=== PATIENT | female | born 1955 | race African-American/Black ===

== ENCOUNTER 2020-05-24 17:33 | Emergency (ER) | payer BC ==
[~2020-05-24] VITALS: Ht 160 cm; Wt 70.8 kg
--- NOTE | 2020-05-24 17:33 | NUR ---
PT BRENDARA FROM [facility] C/O R FLANK PAIN FOR 5 DAYS. PT IS AAOX4, NO IN RESPIRATORY DISTRESS, V/S STABLE, KEPT RESTED AND COMFORTABLE. WILL CONTINUE TO MONITOR.
--- NOTE | 2020-05-24 17:49 | NUR ---
AT BEDSIDE FOR EVAL.
[2020-05-24] MEDS ORDERED: KETOROLAC TROMETHAMINE INJ 30 MG/ML VIAL IV ONE (18:00)
[2020-05-24] MEDS ORDERED: IV NS 0.9% 1,000 ML BAG IV ONE (18:00)
--- NOTE | 2020-05-24 18:01 | NUR ---
URINE SPECIMEN COLLECTED AND SENT TO LAB.
[2020-05-24] MEDS ORDERED: KETOROLAC TROMETHAMINE 15 MG/ML VIAL ONE (18:10)
--- NOTE | 2020-05-24 18:10 | NUR ---
IV LINE ESTABLISHED BLOOD DRAWN AND SENT TO LAB.
[2020-05-24 18:33] LABS: BASOPHILS # (AUTO) 0.1 /CMM (0.0-0.2); BASOPHILS % (AUTO) 0.8 % (0.0-2.0); EOSINOPHILS % (AUTO) 2.6 % (0.0-6.0); HEMATOCRIT 37 % (33-45); HEMOGLOBIN 12.4 g/dL (11.5-14.8); LYMPHOCYTES # (AUTO) 4.4 /CMM (0.8-4.8); LYMPHOCYTES % (AUTO) 61.9 % (20.0-44.0); MEAN CORPUSCULAR HGB CONC 33 g/dl (31.0-36.0); MEAN CORPUSCULAR VOLUME 87 fL (82-100); MONOCYTES # (AUTO) 0.4 /CMM (0.1-1.30); NEUTROPHILS # (AUTO) 2.1 /CMM (1.8-8.9); NEUTROPHILS % (AUTO) 29.7 % (43.0-81.0); PLATELET COUNT (AUTO) 355 /CMM (150-450); RED BLOOD CELL COUNT(AUTO) 4.24 MIL/uL (4.0-5.2); WHITE BLOOD COUNT (AUTO) 7.1 K/uL (4.3-11.0)
[2020-05-24 18:48] LABS: BILIRUBIN,URINE Negative (NEGATIVE); COLOR,URINE YELLOW (YELLOW); LEUKOCYTE ESTERASE ,URINE Negative (NEGATIVE); NITRITE, URINE Negative (NEGATIVE); PROTEIN,URINE Negative (NEGATIVE); UGLUCOSE Negative (NEGATIVE); UROBILINOGEN,URINE 0.2 EU/dL (0.2)
[2020-05-24 18:54] LABS: CREATININE 0.8 mg/dL (0.6-1.3); POTASSIUM 4.3 mmol/L (3.5-5.1)
[2020-05-24 19:02] LABS: ALBUMIN 3.3 g/dL (3.4-5.0); BILIRUBIN,DIRECT 0.1 mg/dL (0.0-0.2); BILIRUBIN,TOTAL 0.2 mg/dL (0.2-1.0)
--- NOTE | 2020-05-24 19:32 | NUR ---
PT AMBULATORY TO RESTROOM WITH STEADY GAIT
--- NOTE | 2020-05-24 19:40 | NUR ---
Patient discharged to home in stable condition. Written and verbal after care instructions given. Patient verbalizes understanding of instruction.IV removed. Catheter intact and site benign. Pressure and 4x4 applied to site. No bleeding noted.Pt ambulatory with a steady gait
[2020-05-24 19:56] LABS: EOSINOPHILS % (MANUAL) 3 % (0-4); LYMPHOCYTES % (MANUAL) 56 % (16-48); MONOCYTES % (MANUAL) 4 % (0-11.0); NEUTROPHILS % (MANUAL) 37 (42-76)
[2020-05-24 20:13] VITALS: BP 115/75
--- NOTE | 2020-05-24 20:36 | NUR ---
LA HOUSING MILITARY TECHNOLOGY MANAGER ERIN ([phone])
--- NOTE | 2020-05-24 20:48 | NUR ---
[facility] RESERVATION #[id number]
== END 2020-05-24 20:13 | disposition home or self-care (01) ==
LOC: ER 17:36
DX: R10.30 Lower abdominal pain, unspecified (principal); I10 Essential (primary) hypertension; E11.9 Type 2 diabetes mellitus without complications; F41.9 Anxiety disorder, unspecified; Z59.0 Homelessness
CPT/HCPCS: 36415; 74176; 80048; 80076; 81003; 83690; 85007; 85025; 96361; 96374; 99284; J1885; J7030

== ENCOUNTER 2020-08-17 15:35 | Emergency (ER) | payer MEDICARE, OTHER ==
[~2020-08-17] VITALS: Ht 160 cm; Wt 65.8 kg
--- NOTE | 2020-08-17 15:35 | NUR ---
PT BIB SELF SENT BY PMD FOR CARDIAC WORK UP. PT IS AAOX4, NOT IN RESPIRATORY DISTRESS, V/S STABLE, KEPT RESTED AND COMFORTABLE. WILL CONTINUE TO MONITOR.
--- NOTE | 2020-08-17 16:00 | NUR ---
AT BEDSIDE FOR EVAL.
--- NOTE | 2020-08-17 16:10 | NUR ---
IV LINE ESTABLISHED BLOOD DRAWN AND SENT TO LAB.
[2020-08-17 16:44] LABS: BASOPHILS # (AUTO) 0.1 /CMM (0.0-0.2); HEMATOCRIT 39 % (33-45); LYMPHOCYTES # (AUTO) 4.8 /CMM (0.8-4.8); LYMPHOCYTES % (AUTO) 74.4 % (20.0-44.0); MEAN CORPUSCULAR HGB CONC 33 g/dl (31.0-36.0); MEAN CORPUSCULAR VOLUME 88 fL (82-100); MONOCYTES # (AUTO) 0.4 /CMM (0.1-1.30); MONOCYTES % (AUTO) 5.6 % (2.0-12.0); PLATELET COUNT (AUTO) 219 /CMM (150-450); RED BLOOD CELL COUNT(AUTO) 4.49 MIL/uL (4.0-5.2); WHITE BLOOD COUNT (AUTO) 6.4 K/uL (4.3-11.0)
[2020-08-17 16:52] LABS: CALCIUM, SERUM 8.6 mg/dL (8.5-10.1); CARBON DIOXIDE 30 mmol/L (21-32); CHLORIDE 104 mmol/L (98-107); CREATININE 0.8 mg/dL (0.6-1.3); GLUCOSE 118 mg/dL (74-106); POTASSIUM 3.1 mmol/L (3.5-5.1); SODIUM SERUM 142 mmol/L (136-145); UREA NITROGEN, BLOOD 12 mg/dL (7-18)
[2020-08-17] MEDS ORDERED: POTASSIUM CHLORIDE 20 MEQ TAB.PRT.SR PO ONE ×2 (17:30→17:36)
--- NOTE | 2020-08-17 18:51 | NUR ---
IV removed. Catheter intact and site benign. Pressure and 4x4 applied to site. No bleeding noted. Patient discharged to home in stable condition. Written and verbal after care instructions given. Patient verbalizes understanding of instruction.
[2020-08-17 18:52] VITALS: BP 121/82
[2020-08-17 19:14] LABS: BAND % (MANUAL) 1 % (0.0-5.0); EOSINOPHILS % (MANUAL) 3 % (0-4); LYMPHOCYTES % (MANUAL) 45 % (16-48); MONOCYTES % (MANUAL) 5 % (0-11.0); NEUTROPHILS % (MANUAL) 18 (42-76); REACTIVE LYMPHOCYTES 28 % (0-0)
== END 2020-08-17 18:52 | disposition home or self-care (01) ==
LOC: ER 15:35
DX: R94.31 Abnormal electrocardiogram [ECG] [EKG] (principal); I10 Essential (primary) hypertension; E11.9 Type 2 diabetes mellitus without complications; F41.9 Anxiety disorder, unspecified; J45.909 Unspecified asthma, uncomplicated; Z90.89 Acquired absence of other organs
CPT/HCPCS: 36415; 71045-TC; 80048-TC; 84484-TC; 85025-TC

== ENCOUNTER 2020-09-21 09:18 | Emergency (ER) | payer MEDICARE, OTHER ==
[~2020-09-21] VITALS: Ht 160 cm; Wt 66.7 kg
[2020-09-21 09:25] VITALS: BP 119/76
--- NOTE | 2020-09-21 09:32 | NUR ---
SEEN AND EXAMINED BY .
--- NOTE | 2020-09-21 09:41 | NUR ---
Patient discharged to home in stable condition. Written and verbal after care instructions given. Patient verbalizes understanding of instruction.
== END 2020-09-21 09:42 | disposition home or self-care (01) ==
LOC: ER 09:25
DX: M79.605 Pain in left leg (principal); M79.604 Pain in right leg; F17.200 Nicotine dependence, unspecified, uncomplicated; I10 Essential (primary) hypertension; E11.9 Type 2 diabetes mellitus without complications; F41.9 Anxiety disorder, unspecified

== ENCOUNTER 2020-10-15 15:40 | Emergency (ER) | payer MEDICARE, OTHER ==
[~2020-10-15] VITALS: Ht 160 cm; Wt 63.5 kg
[2020-10-15] MEDS ORDERED: DEXAMETHASONE SOD PHOSPHATE 10 MG/ML VIAL ONE (16:29)
[2020-10-15] MEDS ORDERED: KETOROLAC TROMETHAMINE 15 MG/ML VIAL ONE (16:29)
[2020-10-15] MEDS ORDERED: BACLOFEN (10 MG) 10 MG TABLET ONE (16:30)
[2020-10-15] MEDS ORDERED: BACLOFEN (10 MG) 10 MG TABLET PO ONE (16:30)
[2020-10-15] MEDS ORDERED: KETOROLAC TROMETHAMINE INJ 30 MG/ML VIAL IM ONE (16:30)
[2020-10-15] MEDS ORDERED: DEXAMETHASONE SOD PHOSPHATE 4 MG/ML VIAL IM ONE (16:30)
--- NOTE | 2020-10-15 16:50 | NUR ---
65 YEARS OLD FEMALE ALERT, ORIENTED X4 WALKING TO ER C/O RIGHT LATERAL THIGH PAIN X3 MONTHS MEDS GIVEN ORDERED WILL CONTINUE TO MONITOR TOLERATED WELL. X-RAY COMPLETED, US IN PROGRESS.
[2020-10-15 16:57] LABS: BILIRUBIN,URINE Negative (NEGATIVE); COLOR,URINE YELLOW (YELLOW); LEUKOCYTE ESTERASE ,URINE Negative (NEGATIVE); NITRITE, URINE Negative (NEGATIVE); PROTEIN,URINE Negative (NEGATIVE); UGLUCOSE Negative (NEGATIVE); UROBILINOGEN,URINE 0.2 EU/dL (0.2)
[2020-10-15] MEDS ORDERED: NAPR500T6 PO (17:43)
[2020-10-15] MEDS ORDERED: TRAM50TA2 PO (17:43)
[2020-10-15 18:07] VITALS: BP 130/70
--- NOTE | 2020-10-15 18:08 | NUR ---
patient condition stable pain improved ambulatory with steady care d/c home with instructions after care reviewed understood left er alert, oriented x4.
== END 2020-10-15 18:19 | disposition home or self-care (01) ==
LOC: ER 15:44
DX: G89.29 Other chronic pain (principal); M54.41 Lumbago with sciatica, right side; M48.00 Spinal stenosis, site unspecified; F17.210 Nicotine dependence, cigarettes, uncomplicated; I10 Essential (primary) hypertension; E11.9 Type 2 diabetes mellitus without complications; F41.9 Anxiety disorder, unspecified
CPT/HCPCS: 72110; 81003; 93971; 96372 ×2; 99285; 99406; J1100; J1885

== ENCOUNTER 2020-12-30 13:45 | Emergency (ER) | payer MEDICARE, OTHER ==
[~2020-12-30] VITALS: Ht 165.1 cm; Wt 70.8 kg
[~2020-12-30 13:45] MED LIST: NAPR500T6 PO; TRAM50TA2 PO
[2020-12-30] MEDS ORDERED: LIDOCAINE 1% INJ 50 ML MDV IJ ONE (15:37)
[2020-12-30] MEDS ORDERED: AZIT250T PO (16:26)
[2020-12-30 16:54] VITALS: BP 151/89
== END 2020-12-30 16:55 | disposition home or self-care (01) ==
LOC: ER 13:59
DX: S60.453A Superficial foreign body of left middle finger, initial encounter (principal); J40 Bronchitis, not specified as acute or chronic; F17.210 Nicotine dependence, cigarettes, uncomplicated; I10 Essential (primary) hypertension; E11.9 Type 2 diabetes mellitus without complications; F41.9 Anxiety disorder, unspecified; Z79.899 Other long term (current) drug therapy; W45.8XXA Other foreign body or object entering through skin, initial encounter; Y93.89 Activity, other specified; Y92.89 Other specified places as the place of occurrence of the external cause; Y99.8 Other external cause status
CPT/HCPCS: 10120; 71045; 73140; 99285; 99406; J3490

== ENCOUNTER 2021-03-23 14:17 | Emergency (ER) | payer MEDICARE, OTHER ==
[~2021-03-23] VITALS: Ht 162.6 cm; Wt 65.8 kg
[~2021-03-23 14:17] MED LIST changes: +AZIT250T PO
--- NOTE | 2021-03-23 14:20 | NUR ---
BIBRA 39 from home for possible OD to unknown substance. Pinpoint pupil upon arrival of RA39 at the scene, 2mg of narcan given and patient responds to pain. Blood glucose is 161MG/DL in the field. Hypotensive with a BP of 94/63, fluid challenge and was given 600ml of IV NS CLINIC RECEPTIONIST. BP is 108/74 upon arrival to the ER. Dr Herrera at for eval. Placed on lunchroom monitor. Will continuously monitor the patient.
[2021-03-23] MEDS ORDERED: NALOXONE PREFILLED SYRINGE 2 MG/2 ML SYRINGE ONE (14:24)
[2021-03-23] MEDS ORDERED: IV NS 0.9% 1,000 ML BAG IV ONE (14:30)
[2021-03-23] MEDS ORDERED: NALOXONE PREFILLED SYRINGE 2 MG/2 ML SYRINGE IV ONE (14:30)
[2021-03-23 15:02] LABS: BASOPHILS % (AUTO) 0.5 % (0.0-2.0); EOSINOPHILS % (AUTO) 2.9 % (0.0-6.0); HEMATOCRIT 37 % (33-45); HEMOGLOBIN 12.1 g/dL (11.5-14.8); LYMPHOCYTES # (AUTO) 4.4 K/uL (0.8-4.8); LYMPHOCYTES % (AUTO) 72.2 % (20.0-44.0); MEAN CORPUSCULAR HGB CONC 33 g/dl (31.0-36.0); MEAN CORPUSCULAR VOLUME 88 fL (82-100); MONOCYTES # (AUTO) 0.4 K/uL (0.1-1.30); NEUTROPHILS # (AUTO) 1.1 K/uL (1.8-8.9); NEUTROPHILS % (AUTO) 17.4 % (43.0-81.0); PLATELET COUNT (AUTO) 162 K/uL (150-450); RED BLOOD CELL COUNT(AUTO) 4.16 MIL/uL (4.0-5.2); WHITE BLOOD COUNT (AUTO) 6.1 K/uL (4.3-11.0)
[2021-03-23] MEDS ORDERED: DEXTROSE 50%-WATER 50 ML DISP.SYRIN ONE (15:09)
[2021-03-23 15:14] LABS: CARBON DIOXIDE 26 mmol/L (21-32); CHLORIDE 109 mmol/L (98-107); CREATININE 0.9 mg/dL (0.6-1.3); GLUCOSE 77 mg/dL (74-106); POTASSIUM 3.3 mmol/L (3.5-5.1); SODIUM SERUM 144 mmol/L (136-145); UREA NITROGEN, BLOOD 13 mg/dL (7-18)
[2021-03-23 15:21] LABS: ALANINE AMINOTRANSFERASE 90 U/L (12-78); ALBUMIN 3.3 g/dL (3.4-5.0); ALCOHOL, BLOOD < 3 mg/dL (0-0); ALKALINE PHOSPHATASE 84 U/L (46-116); ASPARTATE AMINOTRANSFERASE 67 U/L (15-37); BILIRUBIN,DIRECT 0.1 mg/dL (0.0-0.2); BILIRUBIN,TOTAL 0.4 mg/dL (0.2-1.0); TOTAL PROTEIN, SERUM 6.1 g/dL (6.4-8.2)
[2021-03-23 15:27] LABS: ACETAMINOPHEN < 10 ug/ml (10-30)
[2021-03-23] MEDS ORDERED: DEXTROSE 50%-WATER 50 ML DISP.SYRIN IV ONE (15:30)
[2021-03-23 15:58] LABS: BAND % (MANUAL) 1 % (0.0-5.0); EOSINOPHILS % (MANUAL) 6 % (0-4); LYMPHOCYTES % (MANUAL) 71 % (16-48); METAMYELOCYTES % 1 % (0-0); MONOCYTES % (MANUAL) 1 % (0-11.0); NEUTROPHILS % (MANUAL) 14 (42-76)
--- NOTE | 2021-03-23 16:20 | NUR ---
PT SLEEPING, UNAROUSABLE. ATTEMPTED STERNAL RUB AND PT FLINCHED
--- NOTE | 2021-03-23 17:08 | NUR ---
PT SLEEPING IN BED WITH BLANKET
--- NOTE | 2021-03-23 17:46 | NUR ---
URINE SAMPLE OBTAINED AND SENT TO LAB
[2021-03-23 18:11] LABS: BILIRUBIN,URINE Negative (NEGATIVE); COLOR,URINE YELLOW (YELLOW); LEUKOCYTE ESTERASE ,URINE Negative (NEGATIVE); NITRITE, URINE Negative (NEGATIVE); PH,URINE 6.5 (5.0-8.0); PROTEIN,URINE Negative (NEGATIVE); UGLUCOSE Negative (NEGATIVE); UROBILINOGEN,URINE 0.2 EU/dL (0.2)
--- NOTE | 2021-03-23 18:52 | NUR ---
PT SLEEPING IN BED, UNAROUSABLE. CLINCHES TO STERNAL RUB.
--- NOTE | 2021-03-24 02:37 | NUR ---
PT AROUSES TO VERBAL STIMULUS BREATHING EVEN AND UNALBORED 99% RA. ALL V/S AT THIS TIME. WILL CONTINUE TO MONITOR.
[2021-03-24 05:43] LABS: ALBUMIN 3.8 g/dL (3.4-5.0); BILIRUBIN,DIRECT 0.1 mg/dL (0.0-0.2); BILIRUBIN,TOTAL 0.4 mg/dL (0.2-1.0)
--- NOTE | 2021-03-24 06:44 | NUR ---
Patient discharged to home in stable condition. Written and verbal after care instructions given. Patient verbalizes understanding of instruction.
[2021-03-24 06:47] VITALS: BP 106/84
== END 2021-03-24 06:47 | disposition home or self-care (01) ==
LOC: ER 14:23
DX: T40.2X1A Poisoning by other opioids, accidental (unintentional), initial encounter (principal); F19.10 Other psychoactive substance abuse, uncomplicated; I10 Essential (primary) hypertension; E11.9 Type 2 diabetes mellitus without complications; F41.9 Anxiety disorder, unspecified; F17.200 Nicotine dependence, unspecified, uncomplicated; Y92.89 Other specified places as the place of occurrence of the external cause
CPT/HCPCS: 36415 ×2; 80048; 80076 ×2; 80143 ×2; 80179; 80307; 80320; 81003; 82962 ×4; 85007; 85025; 93005; 96365; 96375; 99285; J2310; J7030; G0480

== ENCOUNTER 2022-02-09 16:38 | Inpatient (IN) | payer MEDICARE, OTHER ==
[~2022-02-09] VITALS: Ht 160 cm; Wt 61.7 kg
--- NOTE | 2022-02-09 17:58 | NUR ---
MOVE SHEET SUBMITTED.
[2022-02-09] MEDS ORDERED: MORPHINE SULFATE INJ 2 MG/ML DISP.SYRIN IV ONE (19:30)
[2022-02-09] MEDS ORDERED: MORPHINE SULFATE INJ 2 MG/ML DISP.SYRIN ONE (19:34)
--- NOTE | 2022-02-09 19:40 | NUR ---
ASSUMED CARE OF PT. pPT [id number] from clinic, c/o chest sharp pressure like pain x 2 days L arm numb. PT ALSO ENDORSES HAVING HX OF "BLOOD CLOT IN THE BRAIN MAY 2021". PT AAOX4 BREATHING EVENLY AND UNLABORED. PT ATTACHED TO REEL STRIPPER AND POX. PT CHANGED INTO GOWN AND GIVEN BLANKET. WILL CONTINUE TO MONITOR.
--- NOTE | 2022-02-09 19:51 | NUR ---
covid swab sent to lab.
[2022-02-09 20:08] LABS: CALCIUM, SERUM 8.8 mg/dL (8.5-10.1); CARBON DIOXIDE 26 mmol/L (21-32); CHLORIDE 107 mmol/L (98-107); CREATININE 1.5 mg/dL (0.6-1.3); GLUCOSE 81 mg/dL (74-106); POTASSIUM 3.7 mmol/L (3.5-5.1); SODIUM SERUM 140 mmol/L (136-145); UREA NITROGEN, BLOOD 14 mg/dL (7-18)
[2022-02-09 20:23] LABS: BASOPHILS % (AUTO) 0.5 % (0.0-2.0); HEMATOCRIT 38 % (33-45); HEMOGLOBIN 12.6 g/dL (11.5-14.8); LYMPHOCYTES # (AUTO) 4.3 K/uL (0.8-4.8); LYMPHOCYTES % (AUTO) 66.7 % (20.0-44.0); MEAN CORPUSCULAR HGB CONC 33 g/dl (31.0-36.0); MEAN CORPUSCULAR VOLUME 86 fL (82-100); MONOCYTES # (AUTO) 0.4 K/uL (0.1-1.30); MONOCYTES % (AUTO) 5.6 % (2.0-12.0); NEUTROPHILS # (AUTO) 1.2 K/uL (1.8-8.9); NEUTROPHILS % (AUTO) 19.2 % (43.0-81.0); PLATELET COUNT (AUTO) 172 K/uL (150-450); RED BLOOD CELL COUNT(AUTO) 4.41 MIL/uL (4.0-5.2); WHITE BLOOD COUNT (AUTO) 6.4 K/uL (4.3-11.0)
[2022-02-09] MEDS ORDERED: Z GUARD REMEDY 4 OZ OINT TP PRN (21:30)
[2022-02-09] MEDS ORDERED: MAG HYDROX/AL HYDROX/SIMETH 30 ML UDC PO PRN (21:30)
[2022-02-09] MEDS ORDERED: ACETAMINOPHEN 325 MG TABLET PO PRN (21:30)
[2022-02-09] MEDS ORDERED: MAGNESIUM HYDROXIDE 30 ML UDC PO PRN (21:30)
[2022-02-09] MEDS ORDERED: ZOLPIDEM TARTRATE 5 MG TABLET PO PRN (21:30)
[2022-02-09] MEDS ORDERED: ONDANSETRON HCL/PF 4 MG/2 ML VIAL IVP PRN (21:30)
[2022-02-09] MEDS ORDERED: MORPHINE SULFATE INJ 2 MG/ML DISP.SYRIN IV PRN (22:00)
--- NOTE | 2022-02-09 22:11 | NUR ---
ATTEMPTED TO GIVE REPORT, KEPT ON HOLD
--- NOTE | 2022-02-09 22:19 | NUR ---
GAVE REPORT TO ANNY العراقي FOR LUCITA
[2022-02-09 22:51] VITALS: BP 134/71
--- NOTE | 2022-02-09 23:00 | NUR ---
TELE ADMISSION NOTE RECEIVED REPORT FROM NURSE OWUSU. PATIENT BEING ADMITTED IN ROOM 307-2 WITH DIAGNOSIS OF ACUTE CHEST PAIN WITH HIGH RISK OF ACUTE CORONARY SYNDROME. PT A/O X 4, ABLE TO MAKE NEEDS KNOWN. ABLE TO AMBULATE TO BATHROOM WITH ASSIST. PT IS VERY DROWSY, BUT RESPONSIVE. SHE IS ABLE TO ANSWER FEW QUESTIONS. HAS IV TO RIGHT WRIST 20G WITH NS RUNNING AT 90 ML/HR. BELONGING LIST CHECKED. PT BROUGHT HOME MEDS. SAFETY MEASURES IN PLACE: BED LOCKED IN LOW POSITION, SIDE RAILS UP X2, CALL LIGHT WITHIN REACH. WILL CONTINUE TO MONITOR PT.
[2022-02-09 23:31] LABS: ALANINE AMINOTRANSFERASE 63 U/L (12-78); ALBUMIN 3.7 g/dL (3.4-5.0); ALKALINE PHOSPHATASE 117 U/L (46-116); ASPARTATE AMINOTRANSFERASE 40 U/L (15-37); BILIRUBIN,DIRECT 0.1 mg/dL (0.0-0.2); BILIRUBIN,TOTAL 0.3 mg/dL (0.2-1.0); TOTAL PROTEIN, SERUM 6.8 g/dL (6.4-8.2)
[2022-02-10] MEDS ORDERED: IV NS 0.9% 1,000 ML IV PRN
[2022-02-10 04:00] VITALS: BP 116/70
[2022-02-10 07:10] LABS: BASOPHILS % (AUTO) 0.4 % (0.0-2.0); EOSINOPHILS % (AUTO) 9.6 % (0.0-6.0); HEMATOCRIT 42 % (33-45); HEMOGLOBIN 13.8 g/dL (11.5-14.8); LYMPHOCYTES # (AUTO) 3.4 K/uL (0.8-4.8); LYMPHOCYTES % (AUTO) 64.8 % (20.0-44.0); MEAN CORPUSCULAR HGB CONC 33 g/dl (31.0-36.0); MEAN CORPUSCULAR VOLUME 86 fL (82-100); MONOCYTES # (AUTO) 0.3 K/uL (0.1-1.30); MONOCYTES % (AUTO) 6.2 % (2.0-12.0); PLATELET COUNT (AUTO) 178 K/uL (150-450); RED BLOOD CELL COUNT(AUTO) 4.88 MIL/uL (4.0-5.2); WHITE BLOOD COUNT (AUTO) 5.2 K/uL (4.3-11.0)
--- NOTE | 2022-02-10 07:31 | NUR ---
TRAINING AND DOCUMENTATION SPECIALIST CLOSING NOTE LEFT PT SLEEPING IN BED. PT A/O X4, NO C/O PAIN AT THIS TIME. NO S/S OF ACUTE DISTRESS NOTED. PT ON TELE MONITOR READING SR. IV TO RIGHT AC RUNNING NS AT 90 ML/HR. IV SITE INTACT, AND PATENT. ALL MEDS ADMINISTERED TO PT ORDERED. SAFETY PRECAUTIONS IN PLACE: CALL LIGHT WITHIN REACH, BED IN LOW POSITION, SR UP X2. ENDORSED PT TO AM SHIFT NURSE.
--- NOTE | 2022-02-10 07:35 | NUR ---
ms rn received on bed, awake,alert,oriented x4,patient complaining of pain 10/08, will give meds later, respirations even and unlabored,no sob noted, lungs are clear,abdomen soft,positive bowel sounds,will monitor patient.
[2022-02-10 07:47] LABS: CREATININE 0.8 mg/dL (0.6-1.3); PHOSPHORUS 3.5 mg/dL (2.5-4.9); POTASSIUM 3.9 mmol/L (3.5-5.1)
[2022-02-10 08:00] VITALS: BP 133/72
--- NOTE | 2022-02-10 08:44 | NUR ---
ms rn breakfast served,due meds given, was seen by dr. cohen ,waiting for orders.
[2022-02-10] MEDS: ASPIRIN 81 MG TAB.CHEW PO SCH (09:01)
--- NOTE | 2022-02-10 10:00 | NUR ---
ms rn patient is for ct angio of [facility] today, waiting for the fuel verification technician.
[2022-02-10 12:00] VITALS: BP 112/65
[2022-02-10 13:12] LABS: BASOPHILS % (MANUAL) 0 % (0.0-2.0); EOSINOPHILS % (MANUAL) 8 % (0-4); LYMPHOCYTES % (MANUAL) 59 % (16-48); MONOCYTES % (MANUAL) 8 % (0-11.0); NEUTROPHILS % (MANUAL) 25 (42-76)
--- NOTE | 2022-02-10 13:50 | NUR ---
ms rn called u/s for the procedure,they already gone for the day, charge nurse is aware.
--- NOTE | 2022-02-10 15:00 | NUR ---
ms rn will do ct angio tomorrow per cn.
[2022-02-10] MEDS: TRAMADOL HCL 50 MG TABLET PO PRN ×2 (15:36→21:39)
--- NOTE | 2022-02-10 15:55 | NUR ---
ms rn went down for ct neck,all needs attended.
[2022-02-10 16:00] VITALS: BP 136/77
[2022-02-10] MEDS ORDERED: GABA600T12 PO (16:51)
[2022-02-10] MEDS ORDERED: MAGN400T52 PO (16:51)
[2022-02-10] MEDS ORDERED: ASPI-1420 PO (16:51)
[2022-02-10] MEDS ORDERED: CLOP75TA15 PO (16:51)
[2022-02-10] MEDS ORDERED: POTA20TA83 PO (16:51)
[2022-02-10] MEDS ORDERED: CHOL100062 PO (16:51)
[2022-02-10] MEDS ORDERED: ATOR40TA PO (16:51)
[2022-02-10] MEDS ORDERED: AMLO-213 PO (16:51)
[2022-02-10] MEDS: GABAPENTIN 300 MG CAPSULE PO SCH (17:22)
--- NOTE | 2022-02-10 18:17 | NUR ---
ms rn texted eliu mendez for med recon.
--- NOTE | 2022-02-10 19:35 | NUR ---
WETLAND SCIENTIST OPENING NOTE RECEIVED PT AWAKE, SITTING IN BED. PT A/O X4, NO C/O PAIN AT THIS TIME. NO S/S OF ACUTE DISTRESS NOTED. PT ON TELE MONITOR READING SR. SAFETY PRECAUTIONS IN PLACE: CALL LIGHT WITHIN REACH, BED IN LOW POSITION, SR UP X2. WILL CONTINUE TO MONITOR PT.
[2022-02-10 20:01] VITALS: BP 134/65
[2022-02-10 23:50] VITALS: BP 126/75
[2022-02-11 04:30] VITALS: BP 136/68
[2022-02-11] MEDS: TRAMADOL HCL 50 MG TABLET PO PRN ×2 (05:28→18:59)
[2022-02-11 06:31] VITALS: BP 195/95
--- NOTE | 2022-02-11 07:10 | NUR ---
ms rn received on bed, awake,alert,oriented x4,not in any form of distress, respirations even and unlabored,no sob noted, denies pain at this time, will monitor patient.
--- NOTE | 2022-02-11 07:15 | NUR ---
LANDSCAPE ACCOUNT MANAGER CLOSING NOTE LEFT PT IN BED, AWAKE. PT A/O X4, NO C/O PAIN AT THIS TIME. NO S/S OF ACUTE DISTRESS NOTED. PT NPO DUE TO CT ANGIO SCHEDULED FOR THIS AM. ALL MEDS ADMINISTERED TO PT ORDERED. SAFETY PRECAUTIONS IN PLACE: CALL LIGHT WITHIN REACH, BED IN LOW POSITION, SR UP X2. WILL ENDORSE PT TO AM SHIFT NURSE.
[2022-02-11 08:19] VITALS: BP 122/76
[2022-02-11] MEDS: ASPIRIN 81 MG TAB.CHEW PO SCH (08:21)
[2022-02-11] MEDS: GABAPENTIN 300 MG CAPSULE PO SCH ×3 (08:21→17:49)
--- NOTE | 2022-02-11 09:00 | NUR ---
ms lizarraga breakfast served,due meds given,tolerated well.
--- NOTE | 2022-02-11 11:30 | NUR ---
ms rn was seen by eliu mendez, was reminded to reconcile meds again, will waiting for her to reconcile,all needs attended.
[2022-02-11 12:42] VITALS: BP 125/74
[2022-02-11] MEDS ORDERED: IOHEXOL-350 100 ML VIAL IV ONE (13:20)
[2022-02-11] MEDS ORDERED: CT SWABBABLE VALVE TRANS SET 1 EA INFUS.SET MC ONE (13:20)
[2022-02-11] MEDS ORDERED: IV NS 0.9% 250 ML IV ONE (13:20)
[2022-02-11] MEDS ORDERED: METOPROLOL TARTRATE INJ 5 MG/5 ML AMPUL ONE (13:42)
[2022-02-11] MEDS ORDERED: NITROGLYCERIN 0.4 MG/TAB BOTTLE ONE (13:42)
[2022-02-11] MEDS ORDERED: NITROGLYCERIN 0.4 MG/TAB BOTTLE SL ONE (14:00)
[2022-02-11] MEDS ORDERED: IV NS 0.9% 500 ML IV PRN (14:00)
[2022-02-11] MEDS: METOPROLOL TARTRATE INJ 5 MG/5 ML AMPUL IVP PRN ×2 (14:04→14:05)
--- NOTE | 2022-02-11 14:07 | NUR ---
RN NOTE Patient tolerated procedure well. Report given to ANNY Álvarez.
--- NOTE | 2022-02-11 14:30 | NUR ---
ms rn came back from ct angio, tolerated well.
[2022-02-11 15:50] VITALS: BP 113/63
--- NOTE | 2022-02-11 17:19 | NUR ---
ms rn on bed, stable, still waiting for dr. whitten for psych eval.
--- NOTE | 2022-02-11 17:20 | NUR ---
ms rn texted eliu for med recon.
--- NOTE | 2022-02-11 19:30 | NUR ---
RN OPENING NOTE PATIENT AWAKE IN BED. A/OX4. NO S/S OF DISTRESS, BREATHING WITHOUT DIFFICULTY ON ROOM AIR. R-WRIST SL INTACT AND PATENT. TELE READS SB 59. SAFETY MEASURES IN PLACE: BED LOCKED IN PLACE AND AT LOWEST POSITION, RAILS UP X2, CALL BURROUGHS WITHIN REACH. WILL CONTINUE O MONITOR PATIENT.
[2022-02-11 20:00] VITALS: BP 108/61
[2022-02-11] MEDS: MAGNESIUM OXIDE 400 MG TABLET PO SCH (22:17)
[2022-02-11] MEDS: ATORVASTATIN 40 MG TABLET PO SCH (22:17)
[2022-02-12] VITALS: BP 110/56
[2022-02-12 04:00] VITALS: BP 100/58
--- NOTE | 2022-02-12 06:52 | NUR ---
RN CLOSING NOTE PATIENT ASLEEP IN BED. A/OX4. NO S/S OF DISTRESS, BREATHING WITHOUT DIFFICULTY ON ROOM AIR. R-WRIST #20 SL INTACT AND PATENT. TELE READS SR 62 W/ ST DEPRESSIONS. SAFETY MEASURES IN PLACE: BED LOCKED AND AT LOWEST POSITION, RAILS UP X2, CALL BURROUGHS WITHIN REACH. WILL ENDORSE TO NEXT SHIFT FOR LUCITA.
--- NOTE | 2022-02-12 07:10 | NUR ---
ms rn received on bed,awake,alert,oriented x4,not in any form of distress, respirations even and unlabored,no sob noted, lungs are clear,abdomen soft,positive bowel sounds,denies pain at this time, will monitor patient.
[2022-02-12 08:00] VITALS: BP 133/58
--- NOTE | 2022-02-12 08:30 | NUR ---
ms rn breakfast served,due meds given, tolerated well. was seen by psychiatric orderly for eval
[2022-02-12] MEDS: AMLODIPINE BESYLATE 10 MG TABLET PO SCH (09:00)
[2022-02-12] MEDS: POTASSIUM CHLORIDE 20 MEQ TAB.PRT.SR PO SCH (09:16)
[2022-02-12] MEDS: GABAPENTIN 300 MG CAPSULE PO SCH ×3 (09:16→17:07)
[2022-02-12] MEDS: ASPIRIN 81 MG TAB.CHEW PO SCH (09:17)
[2022-02-12] MEDS: CLOPIDOGREL BISULFATE 75 MG TABLET PO SCH (09:17)
[2022-02-12] MEDS: CHOLECALCIFEROL 1,000 UNIT TABLET (VIT D3) PO SCH (09:17)
[2022-02-12] MEDS: TRAMADOL HCL 50 MG TABLET PO PRN ×2 (09:24→17:07)
--- NOTE | 2022-02-12 11:00 | NUR ---
ms rn patient on bed, no distress noted.
--- NOTE | 2022-02-12 15:00 | NUR ---
ms rn patient is acting up, security called.
[2022-02-12 16:00] VITALS: BP 126/55
--- NOTE | 2022-02-12 16:42 | NUR ---
ms rn sleeping on bed, all needs attended.
[2022-02-12 20:00] VITALS: BP 116/74
--- NOTE | 2022-02-12 20:02 | NUR ---
RN OPENING NOTE PATIENT ASLEEP IN BED. A/OX4. NO S/S OF DISTRESS, BREATHING WITHOUT DIFFICULTY ON ROOM AIR. R-WRIST #20 SL INTACT AND PATENT. TELE READS SR 66. SAFETY MEASURES IN PLACE: BED LOCKED AND AT LOWEST POSITION, RAILS UP X2, CALL BURROUGHS WITHIN REACH. WILL CONTINUE TO MONITOR PATIENT.
[2022-02-12] MEDS: ATORVASTATIN 40 MG TABLET PO SCH (21:27)
[2022-02-12] MEDS: MAGNESIUM OXIDE 400 MG TABLET PO SCH (21:27)
[2022-02-12] MEDS: OLANZAPINE 2.5 MG TABLET PO SCH (21:27)
[2022-02-13] VITALS: BP 109/58
[2022-02-13 04:00] VITALS: BP 110/68
--- NOTE | 2022-02-13 06:37 | NUR ---
RN CLOSING NOTE PATIENT ASLEEP IN BED. A/OX4. NO S/S OF DISTRESS, BREATHING WITHOUT DIFFICULTY ON ROOM AIR. R-WRIST #20 SL INTACT AND PATENT. TELE READS SR 60. SAFETY MEASURES IN PLACE: BED LOCKED IN PLACE, AT LOWEST POSITION, RAILS UP X2, CALL BURROUHGS WITHIN REACH. WILL ENDORSE TO NEXT SHIFT FOR LUCITA.
[2022-02-13] MEDS: TRAMADOL HCL 50 MG TABLET PO PRN ×2 (07:45→13:48)
--- NOTE | 2022-02-13 07:54 | NUR ---
AGRI BUSINESS AGENT OPENING NOTE Patient in bed, awake. A/O x 4, able to make needs known. On room air, breathing evenly and unlabored. No SOB or s/s of distress noted. IV access on Right wrist #20 SL, intact and patent. On tele monitoring showing SR, HR 82. Patient complained of pain on Left arm, 7/10 on pain scale. PRN Tramadol given. Safety precautions in place: bed in low, locked position, siderails up x 2, call light within reach. Will continue to monitor.
[2022-02-13 08:00] VITALS: BP 111/79
[2022-02-13] MEDS: CHOLECALCIFEROL 1,000 UNIT TABLET (VIT D3) PO SCH (08:31)
[2022-02-13] MEDS: AMLODIPINE BESYLATE 10 MG TABLET PO SCH (08:31)
[2022-02-13] MEDS: GABAPENTIN 300 MG CAPSULE PO SCH ×3 (08:31→16:58)
[2022-02-13] MEDS: POTASSIUM CHLORIDE 20 MEQ TAB.PRT.SR PO SCH (08:31)
[2022-02-13] MEDS: ASPIRIN 81 MG TAB.CHEW PO SCH (09:22)
[2022-02-13] MEDS: CLOPIDOGREL BISULFATE 75 MG TABLET PO SCH (09:22)
[2022-02-13 12:00] VITALS: BP 113/68
--- NOTE | 2022-02-13 13:48 | NUR ---
RN NOTE Patient complained of pain on Left shoulder, 7/10 on pain scale. PRN Tramadol given. Will continue to monitor.
[2022-02-13 16:00] VITALS: BP 133/77
--- NOTE | 2022-02-13 19:30 | NUR ---
CARTON FORMING MACHINE HELPER OPENING NOTE RECEIVED PT AWAKE IN BED. A/O X 4 AND ABLE TO MAKE NEEDS KNOWN. PT STABLE ON ROOM AIR. NO SOB OR S/S OF RESPIRATORY DISTRESS. BREATHING EVEN AND UNLABORED. ON EXTERNAL TUNNELLER READING SR 82 BPM. IV ACCESS R WRIST 20G, INTACT AND PATENT. SAFETY PRECAUTIONS IN PLACE. BED IN LOWEST LOCKED POSITION, HOB ELEVATED, SIDE RAILS UP X2, AND CALL LIGHT AND TABLE WITHIN REACH. ALL NEEDS MET AT THIS TIME.
--- NOTE | 2022-02-13 19:32 | NUR ---
DIVISION CHIEF CLOSING NOTE Patient in bed, resting. A/O x 4, able to make needs known. Stable on room air, breathing evenly and unlabored. No SOB or s/s of distress noted. IV access on Right wrist #20 SL, intact and patent. On tele monitoring showing SR. Patient to be kept NPO post midnight for cardiac cath in am. All needs attended to. Due meds given. Safety precautions in place: bed in low, locked position, siderails up x 2, call light within reach. Will endorse to cnc machinist 2nd shift nurse for LUCITA.
[2022-02-13 20:00] VITALS: BP 101/55
[2022-02-13] MEDS: MAGNESIUM OXIDE 400 MG TABLET PO SCH (22:03)
[2022-02-13] MEDS: OLANZAPINE 2.5 MG TABLET PO SCH (22:03)
[2022-02-13] MEDS: ATORVASTATIN 40 MG TABLET PO SCH (22:03)
[2022-02-14] VITALS (11 sets, daily range): BP systolic 102–138; BP diastolic 43–79
--- NOTE | 2022-02-14 07:12 | NUR ---
TELEGRAPH EDITOR CLOSING NOTE PT AWAKE IN BED. A/O X 4 AND ABLE TO MAKE NEEDS KNOWN. PT STABLE ON ROOM AIR. NO SOB OR S/S OF RESPIRATORY DISTRESS. BREATHING EVEN AND UNLABORED. ON EXTERNAL BIOPHARMACEUTICAL REP READING SR. IV ACCESS R WRIST 20G AND LFA 20G, INTACT AND PATENT. ALL DUE MEDS GIVEN ORDERED. SAFETY PRECAUTIONS IN PLACE AT ALL TIMES. BED IN LOWEST LOCKED POSITION, HOB ELEVATED, SIDE RAILS UP X2, AND CALL LIGHT AND TABLE WITHIN REACH. ALL NEEDS MET AT THIS TIME AND WILL ENDORSE TO ONCOMING NURSE FOR LUCITA.
--- NOTE | 2022-02-14 07:15 | NUR ---
GRAPE CUTTER OPENING NOTES: RECEIVED PT AWAKE, ALERT AND ORIENTED X 4 AND ABLE TO VERBALIZED NEEDS. NO SOB OR CARDIAC DISTRESS NOTED, AFEBRILE. MAINTAINED ON NPO. NOTED WITH IV ACCESS ON LFA GAUGE 20 AND R WRIST [id number], INTACT AND FLUSHING WELL. ON STAFFING CLERK: WITH CURRENT READING OF SINUS RHYTHM 712 BPM. SAFETY PRECAUTIONS MAINTAINED: BED LOCKED AND IN LOWEST POSITION, SIDE RAILS UP X 2 CALL LIGHT AND BED SIDE TABLE IN EASY REACH FOR HELP. WILL MONITOR PT ACCORDINGLY.
[2022-02-14 07:26] LABS: BASOPHILS % (AUTO) 0.6 % (0.0-2.0); EOSINOPHILS % (AUTO) 5.4 % (0.0-6.0); HEMATOCRIT 39 % (33-45); HEMOGLOBIN 12.5 g/dL (11.5-14.8); LYMPHOCYTES # (AUTO) 2.3 K/uL (0.8-4.8); LYMPHOCYTES % (AUTO) 60.5 % (20.0-44.0); MEAN CORPUSCULAR HGB CONC 32 g/dl (31.0-36.0); MEAN CORPUSCULAR VOLUME 87 fL (82-100); MONOCYTES # (AUTO) 0.3 K/uL (0.1-1.30); MONOCYTES % (AUTO) 6.6 % (2.0-12.0); NEUTROPHILS % (AUTO) 26.9 % (43.0-81.0); PLATELET COUNT (AUTO) 140 K/uL (150-450); RED BLOOD CELL COUNT(AUTO) 4.46 MIL/uL (4.0-5.2); WHITE BLOOD COUNT (AUTO) 3.9 K/uL (4.3-11.0)
[2022-02-14] MEDS: CLOPIDOGREL BISULFATE 75 MG TABLET PO SCH (09:00)
[2022-02-14] MEDS: ASPIRIN 81 MG TAB.CHEW PO SCH (09:00)
[2022-02-14] MEDS: CHOLECALCIFEROL 1,000 UNIT TABLET (VIT D3) PO SCH (09:00)
[2022-02-14] MEDS: AMLODIPINE BESYLATE 10 MG TABLET PO SCH (09:00)
[2022-02-14] MEDS: POTASSIUM CHLORIDE 20 MEQ TAB.PRT.SR PO SCH (09:00)
[2022-02-14] MEDS: GABAPENTIN 300 MG CAPSULE PO SCH ×3 (09:00→18:18)
--- NOTE | 2022-02-14 10:00 | NUR ---
RN NOTES: PATIENT REQUESTED TO REMOVE IV ACCESS ON HER R WRIST, REMOVED IV ACCESS AND TOLERATED WELL.
[2022-02-14 10:18] LABS: ALBUMIN 3.4 g/dL (3.4-5.0); BILIRUBIN,TOTAL 0.3 mg/dL (0.2-1.0); CALCIUM, SERUM 8.8 mg/dL (8.5-10.1); CREATININE 0.8 mg/dL (0.6-1.3); MAGNESIUM 2.3 mg/dL (1.8-2.4); PHOSPHORUS 3.6 mg/dL (2.5-4.9); POTASSIUM 3.9 mmol/L (3.5-5.1); TOTAL PROTEIN, SERUM 7.2 g/dL (6.4-8.2)
[2022-02-14] MEDS: TRAMADOL HCL 50 MG TABLET PO PRN ×3 (11:14→22:25)
[2022-02-14] MEDS ORDERED: IV NS 0.9% 1,000 ML ONE (13:42)
[2022-02-14] MEDS ORDERED: IODIXANOL 150 ML IV ONE (13:42)
[2022-02-14] MEDS ORDERED: IV SET PRIMARY PUMP SET 1 EA INFUS.SET MC ONE (13:42)
[2022-02-14] MEDS ORDERED: LIDOCAINE HCL/MPF 1% 30 ML VIAL IJ ONE (13:42)
[2022-02-14] MEDS ORDERED: NITROGLYCERIN IN 5 % DEXTROSE 250 ML IV ONE (13:43)
--- NOTE | 2022-02-14 13:53 | NUR ---
RN NOTES: PATIENT PICKED UP BY RN AND TRANSPORTER GOING TO [facility]. PATIENT ALERT AND AWAKE. VS WNL, NO SOB OR CARDIAC DISTRESS NOTED. TRANSFERRED VIA BED.
[2022-02-14] MEDS ORDERED: FENTANYL PF 100MCG/2ML AMPUL ONE (14:04)
[2022-02-14] MEDS ORDERED: MIDAZOLAM HCL 2 MG/2ML VIAL ONE (14:05)
--- NOTE | 2022-02-14 15:30 | NUR ---
CHEMICAL EQUIPMENT SALES ENGINEER RECEIVED PT BY PADMINI WITH MONITOR FROM OUTSOLE CASER. PT AWAKE AND ALERT. DENIES PAIN. FLAT ON BED. PT INSTRUCTED TO KEEP RIGHT LEG STRAIGHT FOR THE NEXT 2 HOURS AND TO STAY IN BED. RIGHT FEMORAL SITE CLEAN AND DRY WITH INTACT DRESSSING. RIGHT PEDAL PULSES PALPABLE, FOOT WARM AND DRY.
--- NOTE | 2022-02-14 17:50 | NUR ---
RN NOTES: PT FROM ICU. PT STABLE A/O X 4 AND ABLE TO VERBALIZED NEEDS. NO SOB OR CARDIAC DISTRESS. PT DENIES ANY PAIN AT THIS TIME. WILL MONITOR PT ACCORDINGLY.
--- NOTE | 2022-02-14 19:00 | NUR ---
TECHNICAL PROGRAMS MANAGER CLOSING NOTES: PT AWAKE, ALERT AND ORIENTED X 4 AND ABLE TO VERBALIZED NEEDS. NO SOB OR CARDIAC DISTRESS NOTED, AFEBRILE. NOTED WITH IV ACCESS ON LFA GAUGE 20 A INTACT AND FLUSHING WELL. ON FIRE MARSHAL: WITH CURRENT READING OF SINUS RHYTHM 78 BPM. SAFETY PRECAUTIONS MAINTAINED: BED LOCKED AND IN LOWEST POSITION, SIDE RAILS UP X 2 CALL LIGHT AND BED SIDE TABLE IN EASY REACH FOR HELP. WILL MONITOR PT ACCORDINGLY. ENDORSED TO NOC SHIFT FOR LUCITA.
--- NOTE | 2022-02-14 20:51 | NUR ---
RN OPENING NOTE PATIENT AWAKE IN BED. A/OX4. NO S/S OF DISTRESS, BREATHING WITHOUT DIFFICULTY ON ROOM AIR. LFA #20 SL INTACT AND PATENT. TELE READS [address]: BED LOCKED AND AT LOWEST POSITION, RAILS UP X2. CALL BURROUGHS WITHIN REACH. WILL CONTINUE TO MONITOR PATIENT.
[2022-02-14] MEDS: ATORVASTATIN 40 MG TABLET PO SCH (22:24)
[2022-02-14] MEDS: MAGNESIUM OXIDE 400 MG TABLET PO SCH (22:24)
[2022-02-14] MEDS: OLANZAPINE 2.5 MG TABLET PO SCH (22:24)
[2022-02-15] VITALS: BP 101/64
[2022-02-15 04:00] VITALS: BP 119/71
--- NOTE | 2022-02-15 06:39 | NUR ---
RN CLOSING NOTE PATIENT ASLEEP IN BED. A/OX4. NO S/S OF DISTRESS, BREATHING WITHOUT DIFFICULTY ON ROOM AIR. LFA #20 SL INTACT AND PATENT. TELE READ SR 60. SAFETY MEASURES IN PLACE: BED LOCKED AND AT LOWEST POSITION, RAILS UP X2, CALL BURROUGHS WITHIN REACH. WILL ENDORSE TO NEXT SHIFT FOR LUCITA.
--- NOTE | 2022-02-15 07:00 | NUR ---
CAUSTIC LOADER OPENING NOTES RECEIVED PATIENT SLEEPING IN BED, A/Ox4, ABLE TO MAKE NEEDS KNOWN. ON ROOM AIR NO S/S OF RESPIRATORY DISCOMFORT. PATIENT ON TELE MONITORING SHOWING SINUS RHYTHM HR 68. NO COMPLAINT OF CHEST PAIN OR DISCOMFORT. IV ACCESS L FA #20 SL. INTACT AND PATENT. SAFETY MEASURES IN PLACE: BED LOCKED AND IN LOWEST POSITION, HOB ELEVATED, SIDE RAILS UPx2, CALL LIGHT WITHIN REACH. WILL CONTINUE TO MONITOR.
[2022-02-15 08:00] VITALS: BP 100/64
[2022-02-15] MEDS: AMLODIPINE BESYLATE 10 MG TABLET PO SCH (09:00)
[2022-02-15] MEDS: POTASSIUM CHLORIDE 20 MEQ TAB.PRT.SR PO SCH (09:17)
[2022-02-15] MEDS: ASPIRIN 81 MG TAB.CHEW PO SCH (09:17)
[2022-02-15] MEDS: GABAPENTIN 300 MG CAPSULE PO SCH ×3 (09:17→16:44)
[2022-02-15] MEDS: CLOPIDOGREL BISULFATE 75 MG TABLET PO SCH (09:17)
[2022-02-15] MEDS: CHOLECALCIFEROL 1,000 UNIT TABLET (VIT D3) PO SCH (09:17)
[2022-02-15 12:00] VITALS: BP 110/66
--- NOTE | 2022-02-15 18:55 | NUR ---
FIREPROOF DOOR ASSEMBLER NOTE PATIENT WAS DISCHARGE IN STABLE MEDICAL CONDITION. A/O X4. V/S TAKEN STABLE AND RECORDED. NO IV ACCESS. PATIENT REFUSED SKIN ASSESSMENT. NAME ARM BAND REMOVED. ALL BELONGINGS CHECKED AND SIGNED. EXTERNAL TRACK REPAIR WORKER WAS REMOVED AND RETURNED TO TELE DESK. HEALTH TEACHING AND DISCHARGE INSTRUCTIONS GIVEN AND VERBALIZED UNDERSTANDING. INSTRUCTED TO MAKE AN APPOINTMENT WITH HER PRIMARY CARE DOCTOR. DISCUSSED PRESCRIPTIONS WITH PATIENT AND INSTRUCTED IN CASE OF EMERGENCY TO CALL 911 OR GO TO NEAREST ER. PATIENT LEFT UNIT VIA WHEELCHAIR WITH NO SIGNS OF DISTRESS, ACCOMPANIED BY HOOK LOADER TO THE LOBBY. PATIENT WENT HOME ALONE VIA TAXI, TAXI VOUCHER WAS PROVIDED TO PATIENT. CHARGE NURSE AWARE OF DISCHARGE.
== END 2022-02-15 18:50 | disposition home or self-care (01) | DRG 286 ==
LOC: ER 16:40 → TELE 21:45 → ICU 02-14 15:31 → TELE 02-14 17:33
PROVIDERS: ADMIT Nurse Practitioner Acute Care; ATTEND Internal Medicine
PROC: 4A023N7 Measurement of Cardiac Sampling and Pressure, Left Heart, Percutaneous Approach (ICD-10-PCS; principal; 2022-02-14)
PROC: B211YZZ Fluoroscopy of Multiple Coronary Arteries using Other Contrast (ICD-10-PCS; 2022-02-14)
PROC: B410YZZ Fluoroscopy of Abdominal Aorta using Other Contrast (ICD-10-PCS; 2022-02-14)
DX: I25.10 Atherosclerotic heart disease of native coronary artery without angina pectoris (principal); N17.0 Acute kidney failure with tubular necrosis; F20.0 Paranoid schizophrenia; J42 Unspecified chronic bronchitis; Z20.822 Contact with and (suspected) exposure to COVID-19; E11.9 Type 2 diabetes mellitus without complications; I10 Essential (primary) hypertension; E78.5 Hyperlipidemia, unspecified; G89.4 Chronic pain syndrome; F17.210 Nicotine dependence, cigarettes, uncomplicated; Z86.73 Personal history of transient ischemic attack (TIA), and cerebral infarction without residual deficits; Z91.51 Personal history of suicidal behavior; Z91.410 Personal history of adult physical and sexual abuse; Z79.899 Other long term (current) drug therapy; Z82.49 Family history of ischemic heart disease and other diseases of the circulatory system; Z79.891 Long term (current) use of opiate analgesic; F12.91 Cannabis use, unspecified, in remission; F14.91 Cocaine use, unspecified, in remission
CPT/HCPCS: 36415; 71045-TC; 72125-TC; 75574; 75625; 80048-TC; 80053-TC; 80061-TC; 80076-TC; 83735-TC; 83880; 84100-TC; 84484-TC; 85025-TC; 85610-TC; 85730-TC; 87081-TC; 93307-TC; C1769; C1887; C1894; C9803; G0378; G0500; J1644; J2250; J2270; J3010; J3490; J7030; J7050; Q9967

== ENCOUNTER 2023-01-07 23:28 | Emergency (ER) | payer BC, OTHER ==
[~2023-01-07] VITALS: Ht 162.6 cm; Wt 54.4 kg
[~2023-01-07 23:28] MED LIST changes: +AMLO-213 PO; +ASPI-1420 PO; +ATOR40TA PO; -AZIT250T PO; +CHOL100062 PO; +CLOP75TA15 PO; +GABA600T12 PO; +MAGN400T52 PO; +POTA20TA83 PO; -TRAM50TA2 PO
[2023-01-08] MEDS ORDERED: NALOXONE HCL 0.4 MG/ML AMPUL IV ONE
[2023-01-08] MEDS ORDERED: IV NS 0.9% 1,000 ML BAG IV ONE
[2023-01-08] MEDS ORDERED: NALOXONE HCL 0.4 MG/ML AMPUL ONE (00:34)
[2023-01-08 00:36] LABS: BASOPHILS % (AUTO) 0.6 % (0.0-2.0); EOSINOPHILS # (AUTO) 0.2 K/uL (0.0-0.7); EOSINOPHILS % (AUTO) 3.4 % (0.0-6.0); HEMATOCRIT 45 % (33-45); HEMOGLOBIN 14.8 g/dL (11.5-14.8); LYMPHOCYTES # (AUTO) 2.2 K/uL (0.8-4.8); LYMPHOCYTES % (AUTO) 48.7 % (20.0-44.0); MEAN CORPUSCULAR HEMOGLOBIN 29 PG (26.0-33.0); MEAN CORPUSCULAR HGB CONC 33 g/dl (31.0-36.0); MEAN CORPUSCULAR VOLUME 87 fL (82-100); MONOCYTES # (AUTO) 0.2 K/uL (0.1-1.30); NEUTROPHILS # (AUTO) 1.9 K/uL (1.8-8.9); NEUTROPHILS % (AUTO) 42.3 % (43.0-81.0); PLATELET COUNT (AUTO) 184 K/uL (150-450); RED BLOOD CELL COUNT(AUTO) 5.14 MIL/uL (4.0-5.2); RED CELL DISTRIBUTION WIDTH 13.7 % (11.5-15.0); WHITE BLOOD COUNT (AUTO) 4.4 K/uL (4.3-11.0)
[2023-01-08 01:05] LABS: CALCIUM, SERUM 9.7 mg/dL (8.5-10.1); CARBON DIOXIDE 23 mmol/L (21-32); CHLORIDE 108 mmol/L (98-107); CREATININE 0.8 mg/dL (0.6-1.3); GLUCOSE 159 mg/dL (74-106); POTASSIUM 3.2 mmol/L (3.5-5.1); SODIUM SERUM 142 mmol/L (136-145); UREA NITROGEN, BLOOD 17 mg/dL (7-18)
[2023-01-08 01:10] LABS: ALANINE AMINOTRANSFERASE 54 U/L (12-78); ALBUMIN 3.8 g/dL (3.4-5.0); ALCOHOL, BLOOD < 3 mg/dL (0-10); ALKALINE PHOSPHATASE 154 U/L (46-116); ASPARTATE AMINOTRANSFERASE 37 U/L (15-37); BILIRUBIN,DIRECT 0.1 mg/dL (0.0-0.2); BILIRUBIN,TOTAL 0.2 mg/dL (0.2-1.0); SALICYLATE 4.7 mg/dL (2.8-20.0)
[2023-01-08 01:12] LABS: ACETAMINOPHEN <10 ug/ml (10-30)
[2023-01-08 02:21] LABS: APPEARANCE,URINE CLEAR (CLEAR); BILIRUBIN,URINE NEGATIVE (NEGATIVE); BLOOD, URINE NEGATIVE Ery/uL (NEGATIVE); COLOR,URINE YELLOW (YELLOW); KETONES,URINE NEGATIVE (NEGATIVE); LEUKOCYTE ESTERASE ,URINE NEGATIVE (NEGATIVE); NITRITE, URINE NEGATIVE (NEGATIVE); PROTEIN,URINE NEGATIVE (NEGATIVE); UGLUCOSE NEGATIVE (NEGATIVE); UROBILINOGEN,URINE 0.2 EU/dL (0.2)
[2023-01-08 02:34] LABS: AMPHETAMINE, URINE NEGATIVE (NEGATIVE); BARBITURATE, URINE NEGATIVE (NEGATIVE); BENZODIAZEPINE, URINE NEGATIVE (NEGATIVE); CANNABINOID, URINE NEGATIVE (NEGATIVE); OPIATE, URINE NEGATIVE (NEGATIVE); PHENCYCLIDINE SCREEN,URINE NEGATIVE (NEGATIVE)
[2023-01-08 02:38] LABS: COCCAINE, URINE POSITIVE (NEGATIVE)
[2023-01-08 06:41] VITALS: BP 129/91; TEMP 98.1; O2SAT 100
== END 2023-01-08 06:42 | disposition home or self-care (01) ==
LOC: ER 23:37
DX: T40.411A Poisoning by fentanyl or fentanyl analogs, accidental (unintentional), initial encounter (principal); R07.89 Other chest pain; I10 Essential (primary) hypertension; E11.9 Type 2 diabetes mellitus without complications; F41.9 Anxiety disorder, unspecified; F17.200 Nicotine dependence, unspecified, uncomplicated; Z79.899 Other long term (current) drug therapy; Z79.82 Long term (current) use of aspirin; Z60.2 Problems related to living alone; Y92.89 Other specified places as the place of occurrence of the external cause
CPT/HCPCS: 99285; 93005 ×2; 71045; 36415; 80307; 96374; 96361; 76700; 85025; 80048; 83690; 80076; 81003; 84484; 82962; 80143; 80320; J2310; J7030; G0480

== ENCOUNTER 2024-03-26 20:42 | Inpatient (IN) | payer MEDICARE, OTHER ==
[~2024-03-26] VITALS: Ht 160 cm; Wt 54.9 kg
[2024-03-26 20:45] VITALS: BP 109/79; TEMP 97.8
[2024-03-26] MEDS ORDERED: Z GUARD REMEDY 4 OZ OINT TP PRN (23:00)
[2024-03-26] MEDS ORDERED: ONDANSETRON HCL/PF 4 MG/2 ML VIAL IVP PRN (23:00)
[2024-03-26] MEDS ORDERED: MAGNESIUM HYDROXIDE 30 ML UDC PO PRN (23:00)
[2024-03-26] MEDS ORDERED: MAG HYDROX/AL HYDROX/SIMETH 30 ML UDC PO PRN (23:00)
[2024-03-26] MEDS ORDERED: MECLIZINE HCL 12.5 MG TABLET PO PRN (23:00)
[2024-03-27] VITALS: BP 108/67; TEMP 97.8; O2SAT 98
[2024-03-27 04:00] VITALS: BP 101/82; TEMP 98; O2SAT 98
[2024-03-27 07:23] LABS: APPEARANCE,URINE CLEAR (CLEAR); BILIRUBIN,URINE NEGATIVE (NEGATIVE); BLOOD, URINE NEGATIVE Ery/uL (NEGATIVE); COLOR,URINE YELLOW (YELLOW); KETONES,URINE TRACE mg/dL (NEGATIVE); LEUKOCYTE ESTERASE ,URINE 2+ (NEGATIVE); NITRITE, URINE NEGATIVE (NEGATIVE); PROTEIN,URINE NEGATIVE (NEGATIVE); UGLUCOSE NEGATIVE (NEGATIVE); UROBILINOGEN,URINE 0.2 EU/dL (0.2)
[2024-03-27] MEDS: PANTOPRAZOLE 40 MG TABLET.DR PO SCH (07:44)
[2024-03-27 07:52] LABS: BASOPHILS % (AUTO) 0.2 % (0.0-2.0); EOSINOPHILS # (AUTO) 0.1 K/uL (0.0-0.7); EOSINOPHILS % (AUTO) 2.3 % (0.0-6.0); HEMATOCRIT 41 % (33-45); HEMOGLOBIN 13.4 g/dL (11.5-14.8); LYMPHOCYTES # (AUTO) 2.9 K/uL (0.8-4.8); LYMPHOCYTES % (AUTO) 54.8 % (20.0-44.0); MEAN CORPUSCULAR HEMOGLOBIN 28 PG (26.0-33.0); MEAN CORPUSCULAR HGB CONC 33 g/dl (31.0-36.0); MEAN CORPUSCULAR VOLUME 85 fL (82-100); MONOCYTES # (AUTO) 0.4 K/uL (0.1-1.30); MONOCYTES % (AUTO) 7.9 % (2.0-12.0); NEUTROPHILS # (AUTO) 1.8 K/uL (1.8-8.9); NEUTROPHILS % (AUTO) 34.8 % (43.0-81.0); PLATELET COUNT (AUTO) 145 K/uL (150-450); RED BLOOD CELL COUNT(AUTO) 4.75 MIL/uL (4.0-5.2); RED CELL DISTRIBUTION WIDTH 13.1 % (11.5-15.0); WHITE BLOOD COUNT (AUTO) 5.2 K/uL (4.3-11.0)
[2024-03-27 08:00] VITALS: BP 102/63; TEMP 97.5; O2SAT 96
[2024-03-27 08:05] LABS: AMPHETAMINE, URINE NEGATIVE (NEGATIVE); BARBITURATE, URINE NEGATIVE (NEGATIVE); BENZODIAZEPINE, URINE NEGATIVE (NEGATIVE); CANNABINOID, URINE NEGATIVE (NEGATIVE); OPIATE, URINE NEGATIVE (NEGATIVE); PHENCYCLIDINE SCREEN,URINE NEGATIVE (NEGATIVE)
[2024-03-27 08:06] LABS: COCCAINE, URINE POSITIVE (NEGATIVE)
[2024-03-27] MEDS: NICOTINE PATCH (21MG) 21 MG PATCH.TD24 TD SCH (08:33)
[2024-03-27 08:34] LABS: ADD URINE CULTURE YES; BACTERIA,URINE 1+ /HPF (None Seen); RBC,URINE 0-2 /HPF (0-2); WBC,URINE 21-50 /HPF (0-3)
[2024-03-27 08:50] LABS: CALCIUM, SERUM 8.7 mg/dL (8.5-10.1); MAGNESIUM 2.2 mg/dL (1.8-2.4); PHOSPHORUS 4.4 mg/dL (2.5-4.9); POTASSIUM 3.8 mmol/L (3.5-5.1)
[2024-03-27 08:54] LABS: ALBUMIN 3.2 g/dL (3.4-5.0); BILIRUBIN,DIRECT 0.1 mg/dL (0.0-0.2); BILIRUBIN,TOTAL 0.2 mg/dL (0.2-1.0); TOTAL PROTEIN, SERUM 6.7 g/dL (6.4-8.2)
[2024-03-27] MEDS ORDERED: ALBU8.5H8 IH (10:35)
[2024-03-27] MEDS ORDERED: ASPI-1169 PO (10:35)
[2024-03-27] MEDS ORDERED: ASCO-382 PO (10:35)
[2024-03-27] MEDS ORDERED: FISH12002 PO (10:35)
[2024-03-27] MEDS ORDERED: VITA-354 PO (10:35)
[2024-03-27] MEDS ORDERED: IOHEXOL-350 100 ML VIAL IV ONE (10:40)
[2024-03-27] MEDS ORDERED: CT SWABBABLE VALVE TRANS SET 1 EA INFUS.SET MC ONE (10:41)
[2024-03-27] MEDS ORDERED: IV NS 0.9% 250 ML IV ONE (10:41)
[2024-03-27 11:22] LABS: THYROID STIMULATING HORMONE 0.85 uIU/mL (0.358-3.74)
[2024-03-27 12:00] VITALS: BP 120/70; TEMP 97.7; O2SAT 96
[2024-03-27] MEDS: ENOXAPARIN SODIUM 40 MG/0.4 ML DISP.SYRIN SQ SCH (12:30)
[2024-03-27] MEDS: CEFTRIAXONE 1 G in IV D5W 50 ML IV SCH (13:12)
[2024-03-27 16:00] VITALS: BP 115/71; TEMP 97.8; O2SAT 96
[2024-03-27 20:00] VITALS: BP 108/66; TEMP 98.4; O2SAT 96
[2024-03-28] VITALS: BP 109/68; TEMP 98; O2SAT 97
[2024-03-28 04:00] VITALS: BP 110/62; TEMP 98.2; O2SAT 98
[2024-03-28 08:00] VITALS: BP 111/88; TEMP 97.6; O2SAT 99
[2024-03-28 08:00] LABS: CALCIUM, SERUM 8.7 mg/dL (8.5-10.1); CREATININE 0.8 mg/dL (0.6-1.3); POTASSIUM 4.2 mmol/L (3.5-5.1)
[2024-03-28 08:46] LABS: BASOPHILS % (AUTO) 0.4 % (0.0-2.0); EOSINOPHILS # (AUTO) 0.1 K/uL (0.0-0.7); EOSINOPHILS % (AUTO) 2.6 % (0.0-6.0); HEMATOCRIT 43 % (33-45); LYMPHOCYTES # (AUTO) 3.8 K/uL (0.8-4.8); LYMPHOCYTES % (AUTO) 74.6 % (20.0-44.0); MEAN CORPUSCULAR HEMOGLOBIN 28 PG (26.0-33.0); MEAN CORPUSCULAR HGB CONC 33 g/dl (31.0-36.0); MEAN CORPUSCULAR VOLUME 86 fL (82-100); MONOCYTES # (AUTO) 0.4 K/uL (0.1-1.30); MONOCYTES % (AUTO) 7.6 % (2.0-12.0); NEUTROPHILS # (AUTO) 0.8 K/uL (1.8-8.9); NEUTROPHILS % (AUTO) 14.8 % (43.0-81.0); PLATELET COUNT (AUTO) 139 K/uL (150-450); RED BLOOD CELL COUNT(AUTO) 4.97 MIL/uL (4.0-5.2); RED CELL DISTRIBUTION WIDTH 13.3 % (11.5-15.0); WHITE BLOOD COUNT (AUTO) 5.1 K/uL (4.3-11.0)
[2024-03-28 10:28] LABS: EOSINOPHILS % (MANUAL) 1 % (0-4); LYMPHOCYTES % (MANUAL) 52 % (16-48); MONOCYTES % (MANUAL) 3 % (0-11.0); NEUTROPHILS % (MANUAL) 22 (42-76); PLATELET ESTIMATE DECREASED; REACTIVE LYMPHOCYTES 22 % (0-0)
[2024-03-28 10:29] LABS: ANISOCYTOSIS 1+; OVALOCYTES 1+
[2024-03-28 12:00] VITALS: BP 130/87; TEMP 97.6; O2SAT 98
[2024-03-28 16:00] VITALS: BP 135/95; TEMP 97.6; O2SAT 98
[2024-03-28 20:00] VITALS: BP 141/90; TEMP 97.7; O2SAT 98
[2024-03-29 04:00] VITALS: BP 144/78; TEMP 97.6; O2SAT 100
[2024-03-29] MEDS: ACETAMINOPHEN 325 MG TABLET PO PRN (05:55)
[2024-03-29 07:15] LABS: BASOPHILS % (AUTO) 0.4 % (0.0-2.0); EOSINOPHILS # (AUTO) 0.2 K/uL (0.0-0.7); EOSINOPHILS % (AUTO) 4.5 % (0.0-6.0); HEMATOCRIT 42 % (33-45); HEMOGLOBIN 14.1 g/dL (11.5-14.8); LYMPHOCYTES % (AUTO) 72.8 % (20.0-44.0); MEAN CORPUSCULAR HEMOGLOBIN 28 PG (26.0-33.0); MEAN CORPUSCULAR HGB CONC 33 g/dl (31.0-36.0); MEAN CORPUSCULAR VOLUME 86 fL (82-100); MONOCYTES # (AUTO) 0.3 K/uL (0.1-1.30); MONOCYTES % (AUTO) 6.8 % (2.0-12.0); NEUTROPHILS # (AUTO) 0.6 K/uL (1.8-8.9); NEUTROPHILS % (AUTO) 15.5 % (43.0-81.0); PLATELET COUNT (AUTO) 148 K/uL (150-450); RED BLOOD CELL COUNT(AUTO) 4.94 MIL/uL (4.0-5.2); RED CELL DISTRIBUTION WIDTH 13.4 % (11.5-15.0); WHITE BLOOD COUNT (AUTO) 4.1 K/uL (4.3-11.0)
[2024-03-29 07:27] LABS: CALCIUM, SERUM 8.8 mg/dL (8.5-10.1); CREATININE 0.7 mg/dL (0.6-1.3); POTASSIUM 3.9 mmol/L (3.5-5.1)
[2024-03-29 08:13] VITALS: BP 140/92; TEMP 97.9; O2SAT 83
[2024-03-29 09:42] LABS: BASOPHILS % (MANUAL) 0 % (0.0-2.0); EOSINOPHILS % (MANUAL) 6 % (0-4); LYMPHOCYTES % (MANUAL) 21 % (16-48); MONOCYTES % (MANUAL) 5 % (0-11.0); NEUTROPHILS % (MANUAL) 68 (42-76)
[2024-03-29 09:43] LABS: PLATELET ESTIMATE DECREASED
[2024-03-29 12:00] VITALS: BP 160/88; TEMP 97.6; O2SAT 98
[2024-03-29] MEDS ORDERED: NICO-762 TD (12:17)
[2024-03-29] MEDS ORDERED: MECL-182 PO (12:17)
[2024-03-29] MEDS ORDERED: CEFT1FRO2 IV (12:17)
[2024-03-29] MEDS ORDERED: ALBUTEROL FS 2.5 MG/3 ML VIAL.NEB NEB PRN (14:00)
[2024-03-29] MEDS ORDERED: MECLIZINE HCL 12.5 MG TABLET PO PRN (14:00)
[2024-03-29 16:33] VITALS: BP 153/83; TEMP 97.5; O2SAT 98
[2024-03-30] MEDS ORDERED: ASCORBIC ACID 500 MG TABLET PO SCH (09:00)
[2024-03-30] MEDS ORDERED: CHOLECALCIFEROL (VITAMIN D 3) 400 UNIT TABLET PO SCH (09:00)
[2024-03-30] MEDS ORDERED: CHOLECALCIFEROL 1,000 UNIT TABLET (VIT D3) PO SCH (09:00)
[2024-03-30] MEDS ORDERED: Medication Not On Formulary EA (Fish Oil/Borage/Flax/Om3,6,9#1 (Omega 3-6-9 1,200 mg Sof PO SCH (09:00)
[2024-03-30] MEDS ORDERED: AMLODIPINE BESYLATE 10 MG TABLET PO SCH (09:00)
[2024-03-30] MEDS ORDERED: Medication Not On Formulary EA (Ceftriaxone Na/Dextrose,Iso (Ceftriaxone 1 Gm Piggyback) IV SCH (09:00)
[2024-03-30] MEDS ORDERED: ASPIRIN 81 MG TAB.CHEW PO SCH (09:00)
[2024-03-30] MEDS ORDERED: NICOTINE PATCH (21MG) 21 MG PATCH.TD24 TD SCH (09:00)
== END 2024-03-29 17:43 | DRG 690 ==
LOC: TELE1 20:42 → MEDSG1 03-28 13:30
PROVIDERS: ADMIT Nurse Practitioner Family; ATTEND Nurse Practitioner Acute Care
DX: N39.0 Urinary tract infection, site not specified (principal); Z59.00 Homelessness unspecified; E78.5 Hyperlipidemia, unspecified; E87.6 Hypokalemia; I10 Essential (primary) hypertension; J45.909 Unspecified asthma, uncomplicated; F17.210 Nicotine dependence, cigarettes, uncomplicated; G89.29 Other chronic pain; Z90.49 Acquired absence of other specified parts of digestive tract; F14.10 Cocaine abuse, uncomplicated; Z79.02 Long term (current) use of antithrombotics/antiplatelets; Z79.82 Long term (current) use of aspirin; Z79.899 Other long term (current) drug therapy; R74.01 Elevation of levels of liver transaminase levels; B96.89 Other specified bacterial agents as the cause of diseases classified elsewhere; Z98.1 Arthrodesis status; R79.89 Other specified abnormal findings of blood chemistry; I69.398 Other sequelae of cerebral infarction
CPT/HCPCS: 36415; 70496-TC; 70498-TC; 71045-TC; 80048-TC; 80061-TC; 80076-TC; 81001; 82607-TC; 83735-TC; 83921; 84100-TC; 84425; 84443-TC; 84484-TC; 85025-TC; 87081-TC; 87086-TC; 97110-TC; 97116-TC; 97530-TC; A4223; G0378; J0696; J1650; J7050; J7060; Q9967